=== PATIENT | female | born 1985 | race Caucasian/White ===

== ENCOUNTER 2017-09-20 18:28 | Emergency (ER) | payer OTHER ==
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
[2017-09-20 19:28] VITALS: BP 159/76; PULSE 106; RESP 16; TEMP 99.1
[2017-09-20 19:33] LABS: Basophils % (A) 0 %; Eosinophils # (A) 0.5 k/uL (0-0.7); Eosinophils % (A) 5 %; HCT 39.8 % (34.0-46.0); Lymphocytes # (A) 1.7 k/uL (1.0-4.8); Lymphocytes % (A) 17 %; MCH 31.1 pg (25.0-35.0); MCHC 32.8 g/dL (31.0-37.0); MCV 94.9 fL (80.0-100.0); Mean Platelet Volume 6.8; Monocytes # (A) 0.3 k/uL (0-1.0); Monocytes % (A) 3 %; Neutrophils % (A) 73 %; Platelet Count 294 k/uL (150-450); RDW 13.6 % (11.5-15.5); WBC 9.6 k/uL (3.8-10.6)
[2017-09-20 19:42] LABS: INR 0.9 (<1.2); Partial Thromboplastin Time 22.7 sec (22.0-30.0); Prothrombin Time 9.4 sec (9.0-12.0)
[2017-09-20 19:45] LABS: Creatine Kinase 194 U/L (30-135)
[2017-09-20 19:47] LABS: Albumin 4.3 g/dL (3.5-5.0); Calcium 10.3 mg/dL (8.4-10.2); Potassium 4.3 mmol/L (3.5-5.1); Total Bilirubin 0.2 mg/dL (0.2-1.3); Total Protein 7.2 g/dL (6.3-8.2)
[2017-09-20 19:53] LABS: Lithium 0.9 mmol/L
[2017-09-20 19:53] LABS: Appearance,Urine Clear (Clear); Bilirubin,Urine Negative (Negative); Blood,Urine Negative (Negative); Color,Urine Yellow; Glucose,Urine (UA) Negative (Negative); Ketones,Urine Negative (Negative); Leukocyte Esterase,Urine Negative (Negative); Nitrite,Urine Negative (Negative); PH, Urine 6.5 (5.0-8.0); Protein,Urine Negative (Negative); Specific Gravity,Urine 1.015 (1.001-1.035)
[2017-09-20 19:58] LABS: Creatine Kinase MB 0.9 ng/mL (0.0-2.4); Troponin I <0.012 ng/mL (0.000-0.034)
--- NOTE | 2017-09-20 20:02 | XR ---
EXAMINATION TYPE: XR chest 2V DATE OF EXAM: 09/20/2017 COMPARISON: CT abdomen pelvis dated 04/14/2017 HISTORY: Altered mental status TECHNIQUE: Frontal and lateral views of the chest are obtained. FINDINGS: There is no focal air space opacity, pleural effusion, or pneumothorax seen. The cardiac silhouette size is within normal limits. There are overlying cardiac leads. Retrocardiac lucency rep resents hiatal hernia. The osseous structures are intact. IMPRESSION: No acute cardiopulmonary process. Hiatal hernia.
[2017-09-20 20:04] LABS: Amphetamine Screen,Urine Not Detected (NotDetected); Barbiturate Screen,Urine Not Detected (NotDetected); Benzodiazepines Screen,Urine Detected (NotDetected); Cocaine Screen,Urine Not Detected (NotDetected); Methadone Screen, Urine Not Detected (NotDetected); Opiate Screen,Urine Not Detected (NotDetected); Oxycodone Screen, Urine Not Detected (NotDetected); Phencyclidine Screen,Urine Not Detected (NotDetected); Tricyclic Antidepressant,Urine Not Detected (NotDetected); Urn Cannabinoid Scrn Detected (NotDetected)
== END 2017-09-20 20:23 | disposition left against medical advice (07) ==
LOC: EC 18:28
DX: R41.82 Altered mental status, unspecified (principal); G89.29 Other chronic pain; R51 Headache; F31.9 Bipolar disorder, unspecified; Z87.891 Personal history of nicotine dependence; Z79.3 Long term (current) use of hormonal contraceptives; Z79.899 Other long term (current) drug therapy
CPT/HCPCS: 36415; 71046; 80053; 80178; 80306; 80320; 81003; 82550; 82553; 84484; 85025; 85610; 85730; 93005; 99285

== ENCOUNTER → 2019-06-17 | Outpatient (CLI) | payer OTHER ==
[2019-06-18 02:21] LABS: Albumin 4.2 g/dL (3.80-4.90); Albumin/Globulin Ratio 1.83 (1.60-3.17); Anion Gap 7.4 mmol/L (4.00-12.00); BUN/Creat Ratio 16.67 Ratio (12.00-20.00); Calcium 9.4 mg/dL (8.7-10.3); Carbon Dioxide 28.6 mmol/L (21.6-31.8); Globulin 2.3 g/dL (1.6-3.3); Lithium 0.5 mmol/L (0.5-1.2); Non-African American GFR(CKD) 82.8 (60.0-200.0); Potassium 3.8 mmol/L (3.5-5.5); Total Bilirubin 0.2 mg/dL (0.3-1.2); Total Protein 6.5 g/dL (6.2-8.2)
[2019-06-18 02:24] LABS: T4, Free (Free Thyroxine) 1.3 ng/dL (0.80-1.80)
== END | disposition home or self-care (01) ==
LOC: LABWHC1 14:50
PROVIDERS: ATTEND Psychiatry & Neurology Psychiatry
DX: Z01.818 Encounter for other preprocedural examination (principal); I25.84 Coronary atherosclerosis due to calcified coronary lesion; F31.32 Bipolar disorder, current episode depressed, moderate
CPT/HCPCS: 36415; 80053; 80178; 84439; 84443; 93005

== ENCOUNTER → 2021-07-17 | Outpatient (CLI) | payer OTHER ==
[2021-07-17 13:10] LABS: INR 0.9 (<1.2); Partial Thromboplastin Time 22.3 sec (22.0-30.0); Prothrombin Time 9.7 sec (9.0-12.0)
[2021-07-17 19:14] LABS: African American GFR (CKD) 75.9 (60.0-200.0); Albumin 4.1 g/dL (3.8-4.9); Albumin/Globulin Ratio 1.41 (1.60-3.17); Anion Gap 12.4 mmol/L (10.00-18.00); BUN/Creat Ratio 8.56 Ratio (12.00-20.00); Blood Urea Nitrogen 9.2 mg/dL (9.0-27.0); Calcium 9.5 mg/dL (8.7-10.3); Carbon Dioxide 23.1 mmol/L (20.0-27.5); Globulin 2.9 g/dL (1.6-3.3); Non-African American GFR(CKD) 65.5 (60.0-200.0); Potassium 4.4 mmol/L (3.5-5.5); Total Bilirubin 0.3 mg/dL (0.30-1.20)
[2021-07-17 19:36] LABS: Basophils # (A) 0.06 X 10*3/uL (0.00-0.10); Basophils % (A) 0.6 %; Eosinophils # (A) 0.34 X 10*3/uL (0.04-0.35); Eosinophils % (A) 3.3 %; HCT 42.1 % (37.2-46.3); HGB 13.1 g/dL (12.0-15.0); Immature Grans, Automated 0.4 %; Lymphocytes # (A) 1.92 X 10*3/uL (0.90-5.00); Lymphocytes % (A) 18.8 %; MCH 30.3 pg (27.0-32.0); MCHC 31.1 g/dL (32.0-37.0); MCV 97.2 fL (80.0-97.0); Mean Platelet Volume 10.4 fL (9.5-12.2); Monocytes # (A) 0.47 X 10*3/uL (0.20-1.00); Monocytes % (A) 4.6 %; NRBC Per 100 WBC 0 /100 WBCS (0.0-0.0); Neutrophils # (A) 7.39 X 10*3/uL (1.80-7.70); Neutrophils % (A) 72.3 %; Platelet Count 314 X 10*3/uL (140-440); RBC 4.33 X 10*6/uL (4.10-5.20); RDW 14.4 % (11.5-14.5); WBC 10.22 X 10*3/uL (4.50-10.00)
== END | disposition home or self-care (01) ==
LOC: LABWHC1 11:47
PROVIDERS: ATTEND Otolaryngology Otolaryngology/Facial Plastic Surgery
DX: Z01.812 Encounter for preprocedural laboratory examination (principal)
CPT/HCPCS: 36415; 80053; 85025; 85610; 85730

== ENCOUNTER → 2023-09-16 | Outpatient (CLI) | payer OTHER ==
[2023-09-17 03:45] LABS: ALT 12 U/L (8-44); AST 15 U/L (13-35); Albumin 4.1 g/dL (3.8-4.9); Albumin/Globulin Ratio 1.64 Ratio (1.60-3.17); Alkaline Phosphatase 60 U/L (41-126); BUN/Creat Ratio 10.11 Ratio (12.00-20.00); Blood Urea Nitrogen 9.1 mg/dL (9.0-27.0); Calcium 9.4 mg/dL (8.7-10.3); Carbon Dioxide 21.4 mmol/L (21.6-31.8); Chloride 107 mmol/L (96-109); Chol/HDL Ratio 3.57 Ratio; Globulin 2.5 g/dL (1.6-3.3); Glucose 87 mg/dL (70-110); LDL Cholesterol,Calculated 94.8 mg/dL (0.0-131.0); Potassium 4.8 mmol/L (3.5-5.5); Sodium 139 mmol/L (135-145); Total Bilirubin 0.2 mg/dL (0.3-1.2); Total Protein 6.6 g/dL (6.2-8.2)
== END | disposition home or self-care (01) ==
LOC: LABWHC1 14:58
DX: E66.3 Overweight (principal); Z68.29 Body mass index [BMI] 29.0-29.9, adult
CPT/HCPCS: 36415; 80053; 80061; 83036; 84443

== ENCOUNTER 2024-02-13 13:14 | Emergency (ER) | payer OTHER ==
[2024-02-13 13:22] VITALS: RESP 20; TEMP 98.9
--- NOTE | 2024-02-13 13:34 | ED ---
General Adult HPI - General Chief complaint: Syncope Stated complaint: Seizure Time Seen by Provider: 02/13/24 13:16 Source: patient, EMS, RN notes reviewed Mode of arrival: EMS Limitations: no limitations - History of Present Illness Initial comments: Patient is a 38-year-old female presenting to the emergency department after seizure activity. EMS and boyfriend help provide history as boyfriend witnessed the event. Patient had generalized tonic-clonic activity lasting for a couple minutes and confusion which has significantly improved and near resolved. Patient states she feels much better at this time. Patient does admit to being off of her Valium however thinks it was almost 3 weeks ago. Patient states she ran out. No history of previous seizure. Patient has occasional alcohol use last was a couple days ago, 3 drinks. No headache or weakness. No recent illness. No injury. - Related Data Home Medications Medication Instructions Recorded Confirmed diazePAM [Valium] 10 mg PO TID PRN 04/14/17 06/19/21 [place] Carbonate [[place] 300 mg PO BID 06/19/21 06/19/21 Carbonate ER] Naltrexone HCl [Revia] 50 mg PO DAILY 06/19/21 06/19/21 Propranolol HCl 80 mg PO DAILY 06/19/21 06/19/21 Tri-Femynor 1 tab PO DAILY 06/19/21 06/19/21 Ziprasidone [Geodon] 80 mg PO HS 06/19/21 06/19/21 busPIRone HCL [Buspar] 30 mg PO BID 06/19/21 06/19/21 Allergies Allergy/AdvReac Type Severity Reaction Status Date / Time No Known Allergies Allergy Verified 02/13/24 13:22 Review of Systems ROS Statement: Those systems with pertinent positive or pertinent negative responses have been documented in the HPI. ROS Other: All systems not noted in ROS Statement are negative. Constitutional: Denies: fever Eyes: Denies: eye pain ENT: Denies: ear pain Respiratory: Denies: cough Cardiovascular: Denies: chest pain Endocrine: Denies: fatigue Gastrointestinal: Denies: abdominal pain Neurological: Reports: as per HPI Past Medical History Past Medical History: GERD/Reflux History of Any Multi-Drug Resistant Organisms: None Reported Past Surgical History: Section, Hernia Repair, Orthopedic Surgery Additional Past Surgical History / Comment(s): thang fundalplacation, right shoulder reconstruction. Past Anesthesia/Blood Transfusion Reactions: No Reported Reaction Past Psychological History: Anxiety, Bipolar, Depression Smoking Status: Vaper Past Alcohol Use History: Heavy Past Drug Use History: None Reported - Past Family History Mother Family Medical History: Hypertension Additional Family Medical History / Comment(s): breast CA, /Environmental CA. Father Family Medical History: Hypertension Additional Family Medical History / Comment(s): grandma on dad's side had Breast CA. General Exam Limitations: no limitations General appearance: alert, in no apparent distress Head exam: Present: atraumatic, normocephalic Eye exam: Present: normal appearance, PERRL, EOMI. Absent: nystagmus ENT exam: Present: normal oropharynx Neck exam: Present: normal inspection. Absent: tenderness Respiratory exam: Present: normal lung sounds bilaterally Cardiovascular Exam: Present: normal rhythm, tachycardia, normal heart sounds GI/Abdominal exam: Present: soft. Absent: tenderness Extremities exam: Present: normal inspection. Absent: pedal edema, calf tenderness Neurological exam: Present: alert, oriented X3, CN II-XII intact. Absent: motor sensory deficit Expanded Neurological exam: Present: protecting the airway Patient oriented to: Present: person, place, time (Slow to respond and unsure however does answer orientation on time correctly) Speech: Present: fluid speech Cranial nerves: EOM's Intact: Normal Sensory exam: Upper Extremity Light Touch: Normal, Lower Extremity Light Touch: Normal Motor strength exam: RUE: 5, LUE: 5, RLE: 5, LLE: 5 Eye Response: (4) open spontaneously Motor Response: (6) obeys commands Verbal Response: (5) oriented Psychiatric exam: Present: normal affect, normal mood Skin exam: Present: normal color Course Vital Signs 02/13/24 02/13/24 13:16 14:22 Temperature 98.9 F Pulse Rate 140 H 112 H Respiratory 20 20 Rate Blood Pressure 125/85 115/83 O2 Sat by Pulse 99 98 Oximetry EKG Findings - EKG Results: EKG: interpreted by BRIAND, sinus rhythm, normal axis, normal QRS, normal ST/T EKG shows: tachycardia Medical Decision Making - Medical Decision Making Was pt. sent in by a medical professional or institution (, PA, FINANCIAL COST ANALYST, urgent care, hospital, or usp...) When possible be specific @ -No Did you speak to anyone other than the patient for history (EMS, parent, family, police, friend...)? What history was obtained from this source @ -Patient's boyfriend is present and helps provide history as patient was unresponsive during the episode Did you review nursing and triage notes (agree or disagree)? Why? @ -I reviewed and agree with nursing and triage notes Were old charts reviewed (outside hosp., previous admission, EMS record, old EKG, old radiological studies, urgent care reports/EKG's, usp records)? Report findings @ -No old charts were reviewed Differential Diagnosis (chest pain, altered mental status, abdominal pain women, abdominal pain men, vaginal bleeding, weakness, fever, dyspnea, syncope, headache, dizziness, GI bleed, back pain, seizure, CVA, palpatations, mental health, musculoskeletal)? @ -Differential Seizure: Recurrent seizure disorder, febrile seizure, alcohol withdrawal, stimulants, meningitis, encephalitis, intercranial hemorrhage, intracranial tumor, stroke, eclampsia, thyrotoxicosis, hypocalcemia, hyponatremia, hypernatremia, hypomagnesemia, psychogenic, this is not meant to be an all-inclusive list. EKG interpreted by me (3pts min.). @ -As above X-rays interpreted by me (1pt min.). @ -None done CT interpreted by me (1pt min.). @ -CT scan of the brain does not reveal acute abnormality U/S interpreted by me (1pt. min.). @ -None done What testing was considered but not performed or refused? (CT, X-rays, U/S, labs)? Why? @ -None What meds were considered but not given or refused? Why? @ -None Did you discuss the management of the patient with other professionals (professionals i.e. , PA, FINANCIAL COST ANALYST, lab, RT, psych nurse, social worker assistant, package line operator, teacher, customs and immigration officer, nurse case manager)? Give summary @ -No Was smoking cessation discussed for >3mins.? @ -No Was critical care preformed (if so, how long)? @ -No Were there social determinants of health that impacted care today? How? (Homelessness, low income, unemployed, alcoholism, drug addiction, transportation, low edu. Level, literacy, decrease access to med. care, senior living, rehab)? @ -No Was there de-escalation of care discussed even if they declined (Discuss DNR or withdrawal of care, Hospice)? DNR status @ -No What co-morbidities impacted this encounter? (DM, HTN, Smoking, COPD, CAD, Cancer, CVA, ARF, Chemo, Hep., AIDS, mental health diagnosis, sleep apnea, morbid obesity)? @ -History of Valium use, last approximately 3 weeks ago Was patient admitted / discharged? Hospital course, mention meds given and route, prescriptions, significant lab abnormalities, going to OR and other pertinent info. @ -Patient presents with seizure, possibly related to discontinuing Valium. This has been 3 weeks and patient should be towards the end of any withdrawal. Patient is requesting discharge home. Patient is recommended close follow-up with her doctor and will be provided a Xanax to take over the next couple of days if she needs. Patient is advised [facility] rule for no driving for 6 months Undiagnosed new problem with uncertain prognosis? @ -No Drug Therapy requiring intensive monitoring for toxicity (Heparin, Nitro, Insulin, Cardizem)? @ -No Were any procedures done? @ -No Diagnosis/symptom? @ -Seizure Acute, or Chronic, or Acute on Chronic? @ -Acute Uncomplicated (without systemic symptoms) or Complicated (systemic symptoms)? @ -Complicated with potential of withdrawal seizure Side effects of treatment? @ -No Exacerbation, Progression, or Severe Exacerbation? @ -No Poses a threat to life or bodily function? How? (Chest pain, [place], [place], pneumonia, PE, COPD, DKA, ARF, appy, cholecystitis, CVA, Diverticulitis, Homicidal, Suicidal, threat to staff... and all critical care pts) @ -No - Lab Data Result diagrams: 02/13/24 16:15 02/13/24 16:04 Lab Results 02/13/24 02/13/24 02/13/24 Range/Units 14:09 16:04 16:15 WBC 11.6 H (3.8-10.6) k/uL RBC 4.03 (3.80-5.40) m/uL Hgb 12.6 (11.4-16.0) gm/dL Hct 38.0 (34.0-46.0) % MCV 94.3 (80.0-100.0) fL MCH 31.4 (25.0-35.0) pg MCHC 33.3 (31.0-37.0) g/dL RDW 14.7 (11.5-15.5) % Plt Count 135 L (150-450) k/uL MPV 8.8 Neutrophils % 79 % Lymphocytes % 14 % Monocytes % 4 % Eosinophils % 1 % Basophils % 0 % Neutrophils # 9.2 H (1.3-7.7) k/uL Lymphocytes # 1.7 (1.0-4.8) k/uL Monocytes # 0.5 (0-1.0) k/uL Eosinophils # 0.2 (0-0.7) k/uL Basophils # 0.0 (0-0.2) k/uL Sodium 136 L (137-145) mmol/L Potassium 4.4 (3.5-5.1) mmol/L Chloride 112 H (98-107) mmol/L Carbon Dioxide 19 L (22-30) mmol/L Anion Gap 5 mmol/L BUN 11 (7-17) mg/dL Creatinine 0.95 (0.52-1.04) mg/dL Est GFR (CKD-EPI)AfAm 88 (>60 ml/min/1.73 sqM) Est GFR (CKD-EPI)NonAf 76 (>60 ml/min/1.73 sqM) Glucose 97 (74-99) mg/dL Calcium 9.1 (8.4-10.2) mg/dL Magnesium 1.9 (1.6-2.3) mg/dL Total Bilirubin 0.7 (0.2-1.3) mg/dL AST 30 (14-36) U/L ALT 23 (4-34) U/L Alkaline Phosphatase 72 (38-126) U/L Total Protein 6.5 (6.3-8.2) g/dL Albumin 3.9 (3.5-5.0) g/dL TSH 0.388 L (0.465-4.680) mIU/L Free T4 0.98 (0.78-2.19) ng/dL HCG, Qual Not Detected Urine Color Light Yellow Urine Appearance Cloudy H (Clear) Urine pH 6.0 (5.0-8.0) Ur Specific [place] 1.013 (1.001-1.035) Urine Protein 1+ H (Negative) Urine Glucose (UA) Negative (Negative) Urine Ketones 1+ H (Negative) Urine Blood Negative (Negative) Urine Nitrite Negative (Negative) Urine Bilirubin Negative (Negative) Urine Urobilinogen <2.0 (<2.0) mg/dL Ur Leukocyte Esterase Small H (Negative) Urine RBC 3 (0-5) /hpf Urine WBC 6 H (0-5) /hpf Ur Squamous Epith Cells 36 H (0-4) /hpf Amorphous Sediment Rare H (None) /hpf Hyaline Casts 4 H (0-2) /lpf Urine Mucus Rare H (None) /hpf Urine Opiates Screen Not Detected (NotDetected) Ur Oxycodone Screen Not Detected (NotDetected) Urine Methadone Screen Not Detected (NotDetected) Ur Barbiturates Screen Not Detected (NotDetected) U Tricyclic Antidepress Detected H (NotDetected) Ur Phencyclidine Scrn Not Detected (NotDetected) Ur Amphetamines Screen Not Detected (NotDetected) U Methamphetamines Scrn Not Detected (NotDetected) U Benzodiazepines Scrn Detected H (NotDetected) [place] 0.7 mmol/L Urine Cocaine Screen Not Detected (NotDetected) U Marijuana (THC) Screen Detected H (NotDetected) Disposition Clinical Impression: Seizure Disposition: HOME SELF-CARE Condition: Stable Instructions (If sedation given, give patient instructions): New-Onset Seizure in Adults (ED) Additional Instructions: Please do follow-up with your primary care physician in the next couple of days for recheck. Extra Xanax provided for you to take home if you need over the next couple of days. Return for recurrent seizures, loss of consciousness, vomiting, fevers, worsening or change in symptoms concerns Is patient prescribed a controlled substance at d/c from ED?: No Referrals: Antonio Costello MD [Primary Care Provider] - 1-2 days Time of Disposition: 17:40
--- NOTE | 2024-02-13 14:25 | CT ---
EXAMINATION TYPE: CT brain wo con DATE OF EXAM: 02/13/2024 COMPARISON: None HISTORY: Seizure CT DLP: 1027.4 mGycm. Automated Exposure Control for Dose Reduction was Utilized. Multiple axial lauren ges were obtained from the skull base to vertex without use of IV contrast. Findings: The ventricles, basal cisterns and sulci over the convexities are within normal limits and there is n o mass effect or shift of midline structures. No abnormal density is seen throughout the brain parenchyma and there is no acute intra or extra-axia l hemorrhage. The posterior fossa including the brainstem, fourth ventricle and cerebellar pontine angles appear no rmal. Intraorbital contents appear normal and symmetric. Visualized paranasal sinuses and mastoid air cells are well aerated. The calvarium is intact. IMPRESSION: No significant abnormality seen. contrast. [facility], , 02/13/2024 2:22 PM
[2024-02-13 14:32] LABS: Amorphous Sediment,Urine Rare /hpf; Appearance,Urine Cloudy (Clear); Bilirubin,Urine Negative (Negative); Blood,Urine Negative (Negative); Color,Urine Light Yellow; Glucose,Urine (UA) Negative (Negative); Hyaline Casts,Urine 4 /lpf (0-2); Ketones,Urine 1+ (Negative); Leukocyte Esterase,Urine Small (Negative); Mucus,Urine Rare /hpf; Nitrite,Urine Negative (Negative); Protein,Urine 1+ (Negative); RBC,Urine 3 /hpf (0-5); Specific Gravity,Urine 1.013 (1.001-1.035); Squamous Epithelial Cell,Urine 36 /hpf (0-4); Urobilinogen,Urine <2.0 mg/dL (<2.0); WBC,Urine 6 /hpf (0-5)
[2024-02-13 14:49] LABS: Amphetamine Screen,Urine Not Detected (NotDetected); Barbiturate Screen,Urine Not Detected (NotDetected); Benzodiazepines Screen,Urine Detected (NotDetected); Cocaine Screen,Urine Not Detected (NotDetected); Methadone Screen, Urine Not Detected (NotDetected); Opiate Screen,Urine Not Detected (NotDetected); Oxycodone Screen, Urine Not Detected (NotDetected); Phencyclidine Screen,Urine Not Detected (NotDetected); Tricyclic Antidepressant,Urine Detected (NotDetected); Urn Cannabinoid Scrn Detected (NotDetected)
[2024-02-13 16:27] LABS: HCG,Qualitative Serum Not Detected
[2024-02-13 16:35] LABS: ALT 23 U/L (4-34); AST 30 U/L (14-36); African American GFR (CKD) 88 (>60 ml/min/1.73 sqM); Albumin 3.9 g/dL (3.5-5.0); Alkaline Phosphatase 72 U/L (38-126); Anion Gap 5 mmol/L; Blood Urea Nitrogen 11 mg/dL (7-17); Calcium 9.1 mg/dL (8.4-10.2); Carbon Dioxide 19 mmol/L (22-30); Chloride 112 mmol/L (98-107); Glucose 97 mg/dL (74-99); Lithium 0.7 mmol/L; Magnesium 1.9 mg/dL (1.6-2.3); Non-African American GFR(CKD) 76 (>60 ml/min/1.73 sqM); Potassium 4.4 mmol/L (3.5-5.1); Sodium 136 mmol/L (137-145); Total Bilirubin 0.7 mg/dL (0.2-1.3); Total Protein 6.5 g/dL (6.3-8.2)
[2024-02-13 16:52] LABS: T4, Free (Free Thyroxine) 0.98 ng/dL (0.78-2.19)
[2024-02-13 17:17] LABS: Basophils % (A) 0 %; Eosinophils # (A) 0.2 k/uL (0-0.7); Eosinophils % (A) 1 %; HGB 12.6 gm/dL (11.4-16.0); Lymphocytes # (A) 1.7 k/uL (1.0-4.8); Lymphocytes % (A) 14 %; MCH 31.4 pg (25.0-35.0); MCHC 33.3 g/dL (31.0-37.0); MCV 94.3 fL (80.0-100.0); Mean Platelet Volume 8.8; Monocytes # (A) 0.5 k/uL (0-1.0); Monocytes % (A) 4 %; Neutrophils # (A) 9.2 k/uL (1.3-7.7); Neutrophils % (A) 79 %; Platelet Count 135 k/uL (150-450); RBC 4.03 m/uL (3.80-5.40); RDW 14.7 % (11.5-15.5); WBC 11.6 k/uL (3.8-10.6)
[2024-02-13] MEDS: ALPRAZolam 0.5 MG TAB PO STA (17:49)
[2024-02-13 17:53] VITALS: BP 123/85; PULSE 86
== END 2024-02-13 17:53 | disposition home or self-care (01) ==
LOC: EC 13:14
CPT/HCPCS: 36415; 70450; 80053; 80178; 80306; 81001; 83735; 84439; 84443; 84481; 84703; 85025; 93005; 96374; 99285

== ENCOUNTER 2024-05-23 09:27 | Inpatient (IN) | payer OTHER ==
[2024-05-23] MEDS ORDERED: LORazepam 2 MG/ML INJ IV PRN ×2 (09:40)
--- NOTE | 2024-05-23 09:46 | ED ---
Alcohol HPI - General Chief Complaint: Alcohol Stated Complaint: ETOH Time Seen by Provider: 05/23/24 09:34 Source: patient, RN notes reviewed Mode of arrival: ambulatory Limitations: no limitations - History of Present Illness Initial Comments: This is a 39-year-old female who presents to the emergency department for alcohol withdrawals. States that her last drink was 24 hours ago. She typically has a fifth of liquor each day. States that she is starting to feel shaky, nauseous, and dizzy. Denies any chest pain or shortness of breath. She does also report a history of withdrawal seizures. She went through withdrawals in March but ended up managing it outpatient with a prescription for Xanax to wean herself off. MD Complaint: alcohol withdrawal - Related Data Home Medications Medication Instructions Recorded Confirmed busPIRone HCL [Buspar] 30 mg PO BID 06/19/21 05/23/24 ALPRAZolam [Xanax] 1 mg PO TID PRN 02/13/24 05/23/24 Channing Carbonate ER [Lithobid] 450 mg PO HS 02/13/24 05/23/24 Oxybutynin ER [Ditropan XL] 15 mg PO BID 02/13/24 05/23/24 Prazosin [Minipress] 1 mg PO HS 02/13/24 05/23/24 QUEtiapine [SEROquel] 400 mg PO HS 02/13/24 05/23/24 Ziprasidone [Geodon] 60 mg PO BID 02/13/24 05/23/24 buPROPion XL [Wellbutrin XL] 300 mg PO DAILY 02/13/24 05/23/24 Propranolol HCl [Propranolol HCl 80 mg PO DAILY 05/23/24 05/23/24 ER] Allergies Allergy/AdvReac Type Severity Reaction Status Date / Time No Known Allergies Allergy Verified 05/23/24 13:16 Review of Systems ROS Statement: Those systems with pertinent positive or pertinent negative responses have been documented in the HPI. ROS Other: All systems not noted in ROS Statement are negative. Past Medical History Past Medical History: GERD/Reflux History of Any Multi-Drug Resistant Organisms: None Reported Past Surgical History: Section, Hernia Repair, Orthopedic Surgery Additional Past Surgical History / Comment(s): thang fundalplacation, right shoulder reconstruction. kinsey [place] Past Anesthesia/Blood Transfusion Reactions: No Reported Reaction Past Psychological History: Anxiety, Bipolar, Depression Smoking Status: Current every day smoker, Vaper Past Alcohol Use History: Daily, Heavy Past Drug Use History: Marijuana - Past Family History Mother Family Medical History: Hypertension Additional Family Medical History / Comment(s): breast CA, /Environmental CA. Father Family Medical History: Hypertension Additional Family Medical History / Comment(s): grandma on dad's side had Breast CA. General Exam Limitations: no limitations General appearance: alert, in no apparent distress Head exam: Present: atraumatic, normocephalic, normal inspection Eye exam: Present: normal appearance, PERRL, EOMI. Absent: scleral icterus, conjunctival injection, periorbital swelling Respiratory exam: Present: normal lung sounds bilaterally. Absent: respiratory distress, wheezes, rales, rhonchi, stridor Cardiovascular Exam: Present: regular rate, normal rhythm, normal heart sounds. Absent: systolic murmur, diastolic murmur, rubs, gallop, clicks Neurological exam: Present: alert, oriented X3, CN II-XII intact Psychiatric exam: Present: normal affect, normal mood Skin exam: Present: warm, dry, intact, normal color. Absent: rash Course Vital Signs 05/23/24 05/23/24 05/23/24 09:28 10:39 12:46 Temperature 98.2 F Pulse Rate 89 78 72 Respiratory 18 20 18 Rate Blood Pressure 126/82 106/95 122/79 O2 Sat by Pulse 99 98 99 Oximetry Medical Decision Making - Medical Decision Making This is a 39-year-old female who presents to the emergency department for alcohol withdrawals. Was pt. sent in by a medical professional or institution? @ -No Did you speak to anyone other than the patient for history? @ -No Did you review nursing and triage notes? @ -Yes, and I agree, it is accurate with regards to the patient's symptoms. Were old charts reviewed? @ -No Differential Diagnosis? @ -Alcohol withdrawals, hypoglycemia, panic attack, thyrotoxicosis, this is not meant to be an all-inclusive list. EKG interpreted by me (3pts min.)? @ -EKG interpreted by me demonstrating the following: Sinus rhythm. Ventricular rate 79 bpm, CO interval 159 ms, QRS duration 71 ms, QTc 464 ms. X-rays interpreted by me (1pt min.)? @ -Not obtained CT interpreted by me (1pt min.)? @ -Not obtained U/S interpreted by me (1pt. min.)? @ -Not obtained What testing was considered but not performed? (CT, X-rays, U/S, labs)? Why? @ -None What meds were considered but not given? Why? @ -None Did you discuss the management of the patient with other professionals? @ -Yes, Dr. Costello, who accepts the patient for admission Did you reconcile home meds? @ -Yes Was smoking cessation discussed for >3mins.? @ -No Was critical care preformed (if so, how long)? @ -No Were there social determinants of health that impacted care today? How? (Homelessness, low income, unemployed, alcoholism, drug addiction, transportation, low edu. Level, literacy, decrease access to med. care, retirement, rehab)? @ -Alcoholism, leading to the withdrawals, which is the reason for her visit today. Was there de-escalation of care discussed even if they declined? (Discuss DNR or withdrawal of care, Hospice)? @ -No What co-morbidities impacted this encounter? (DM, HTN, Smoking, COPD, CAD, Cancer, CVA, Hep., AIDS, mental health diagnosis, sleep apnea, morbid obesity)? @ -Alcoholism Was patient admitted / discharged? @ -Admitted. Lab work relatively unremarkable. Urinalysis negative for signs of infection. Patient was notably shaky and diaphoretic on exam. Initial CIWA was 12. Seizure precautions were initiated due to her history. She was admitted to medicine for further management of alcohol withdrawals. CIWA protocol initiated. Case discussed with ED attending Dr. Marsh. Undiagnosed new problem with uncertain prognosis? @ -None Drug Therapy requiring intensive monitoring for toxicity (Heparin, Nitro, Insulin, Cardizem)? @ -None Were any procedures done? @ -None Diagnosis/symptom? @ -Alcohol withdrawals Acute, or Chronic, or Acute on Chronic? @ -Acute Uncomplicated (without systemic symptoms) or Complicated (systemic symptoms)? @ -Complicated Side effects of treatment? @ -None Exacerbation, Progression, or Severe Exacerbation] @ -Not applicable Poses a threat to life or bodily function? @ -Yes, can lead to DTs, which can be fatal - Lab Data Result diagrams: 05/23/24 10:18 05/23/24 11:08 Lab Results 05/23/24 05/23/24 05/23/24 Range/Units 10:18 10:37 11:08 WBC 8.0 (3.8-10.6) k/uL RBC 4.20 (3.80-5.40) m/uL Hgb 14.0 (11.4-16.0) gm/dL Hct 41.9 (34.0-46.0) % MCV 99.7 (80.0-100.0) fL MCH 33.3 (25.0-35.0) pg MCHC 33.3 (31.0-37.0) g/dL RDW 14.7 (11.5-15.5) % Plt Count 236 (150-450) k/uL MPV 6.7 Neutrophils % 81 % Lymphocytes % 10 % Monocytes % 5 % Eosinophils % 1 % Basophils % 0 % Neutrophils # 6.5 (1.3-7.7) k/uL Lymphocytes # 0.8 L (1.0-4.8) k/uL Monocytes # 0.4 (0-1.0) k/uL Eosinophils # 0.1 (0-0.7) k/uL Basophils # 0.0 (0-0.2) k/uL Macrocytosis Slight PT 10.3 (10.0-12.5) sec INR 0.9 (<1.2) Sodium 134 L (137-145) mmol/L Potassium 4.4 (3.5-5.1) mmol/L Chloride 95 L (98-107) mmol/L Carbon Dioxide 26 (22-30) mmol/L Anion Gap 13 mmol/L BUN 13 (7-17) mg/dL Creatinine 0.90 (0.52-1.04) mg/dL Est GFR (CKD-EPI)AfAm >90 (>60 ml/min/1.73 sqM) Est GFR (CKD-EPI)NonAf 81 (>60 ml/min/1.73 sqM) Glucose 80 (74-99) mg/dL Calcium 9.8 (8.4-10.2) mg/dL Phosphorus 2.0 L (2.5-4.5) mg/dL Magnesium 2.0 (1.6-2.3) mg/dL Total Bilirubin 1.3 (0.2-1.3) mg/dL AST 127 H (14-36) U/L ALT 76 H (4-34) U/L Alkaline Phosphatase 71 (38-126) U/L Troponin I (0.000-0.034) ng/mL Total Protein 7.6 (6.3-8.2) g/dL Albumin 4.7 (3.5-5.0) g/dL Amylase 47 (30-110) U/L Lipase 43 (23-300) U/L Serum Alcohol <10 mg/dL 05/23/24 Range/Units 11:08 WBC (3.8-10.6) k/uL RBC (3.80-5.40) m/uL Hgb (11.4-16.0) gm/dL Hct (34.0-46.0) % MCV (80.0-100.0) fL MCH (25.0-35.0) pg MCHC (31.0-37.0) g/dL RDW (11.5-15.5) % Plt Count (150-450) k/uL MPV Neutrophils % % Lymphocytes % % Monocytes % % Eosinophils % % Basophils % % Neutrophils # (1.3-7.7) k/uL Lymphocytes # (1.0-4.8) k/uL Monocytes # (0-1.0) k/uL Eosinophils # (0-0.7) k/uL Basophils # (0-0.2) k/uL Macrocytosis PT (10.0-12.5) sec INR (<1.2) Sodium (137-145) mmol/L Potassium (3.5-5.1) mmol/L Chloride (98-107) mmol/L Carbon Dioxide (22-30) mmol/L Anion Gap mmol/L BUN (7-17) mg/dL Creatinine (0.52-1.04) mg/dL Est GFR (CKD-EPI)AfAm (>60 ml/min/1.73 sqM) Est GFR (CKD-EPI)NonAf (>60 ml/min/1.73 sqM) Glucose (74-99) mg/dL Calcium (8.4-10.2) mg/dL Phosphorus (2.5-4.5) mg/dL Magnesium (1.6-2.3) mg/dL Total Bilirubin (0.2-1.3) mg/dL AST (14-36) U/L ALT (4-34) U/L Alkaline Phosphatase (38-126) U/L Troponin I <0.012 (0.000-0.034) ng/mL Total Protein (6.3-8.2) g/dL Albumin (3.5-5.0) g/dL Amylase (30-110) U/L Lipase (23-300) U/L Serum Alcohol mg/dL Disposition Clinical Impression: Alcohol withdrawal Disposition: ADMITTED IP TO THIS HOSP
[2024-05-23] MEDS: THIAMINE 100 MG/ML 2 ML VIAL IM STA (10:24)
[2024-05-23] MEDS: SODIUM CHLORIDE 0.9% 1,000 ML IV STA (10:26)
[2024-05-23] MEDS: LORazepam 2 MG/ML INJ IV STA (10:26)
[2024-05-23 10:30] LABS: Basophils % (A) 0 %; Eosinophils # (A) 0.1 k/uL (0-0.7); Eosinophils % (A) 1 %; HCT 41.9 % (34.0-46.0); Lymphocytes # (A) 0.8 k/uL (1.0-4.8); Lymphocytes % (A) 10 %; MCH 33.3 pg (25.0-35.0); MCHC 33.3 g/dL (31.0-37.0); MCV 99.7 fL (80.0-100.0); Macrocytosis Slight; Mean Platelet Volume 6.7; Monocytes # (A) 0.4 k/uL (0-1.0); Monocytes % (A) 5 %; Neutrophils # (A) 6.5 k/uL (1.3-7.7); Neutrophils % (A) 81 %; Platelet Count 236 k/uL (150-450); RDW 14.7 % (11.5-15.5)
[2024-05-23 11:14] LABS: INR 0.9 (<1.2); Prothrombin Time 10.3 sec (10.0-12.5)
[2024-05-23 11:40] LABS: ALT 76 U/L (4-34); AST 127 U/L (14-36); African American GFR (CKD) >90 (>60 ml/min/1.73 sqM); Albumin 4.7 g/dL (3.5-5.0); Alcohol <10 mg/dL; Alkaline Phosphatase 71 U/L (38-126); Amylase 47 U/L (30-110); Anion Gap 13 mmol/L; Blood Urea Nitrogen 13 mg/dL (7-17); Calcium 9.8 mg/dL (8.4-10.2); Carbon Dioxide 26 mmol/L (22-30); Chloride 95 mmol/L (98-107); Glucose 80 mg/dL (74-99); Lipase 43 U/L (23-300); Non-African American GFR(CKD) 81 (>60 ml/min/1.73 sqM); Potassium 4.4 mmol/L (3.5-5.1); Sodium 134 mmol/L (137-145); Total Bilirubin 1.3 mg/dL (0.2-1.3); Total Protein 7.6 g/dL (6.3-8.2)
[2024-05-23] MEDS ORDERED: IBUPROFEN 400 MG TAB PO PRN (11:53)
[2024-05-23] MEDS ORDERED: MORPHINE SULFATE 4 MG/ML SYRINGE IV PRN (11:53)
[2024-05-23] MEDS ORDERED: KETOROLAC 15 MG/ML 1 ML VIAL IVP PRN (11:53)
[2024-05-23] MEDS ORDERED: NALOXONE 0.4 MG/ML 1 ML VIAL IV PRN (11:53)
[2024-05-23] MEDS: ONDANSETRON 4 MG/2 ML VIAL IVP STA (12:44)
[2024-05-23] MEDS: LORazepam 2 MG/ML INJ IV PRN ×2 (12:44→16:58)
[2024-05-23 13:35] LABS: Amorphous Sediment,Urine Occasional /hpf; Appearance,Urine Cloudy (Clear); Bilirubin,Urine Negative (Negative); Blood,Urine Trace (Negative); Color,Urine Light Yellow; Glucose,Urine (UA) Negative (Negative); Ketones,Urine 2+ (Negative); Leukocyte Esterase,Urine Negative (Negative); Mucus,Urine Rare /hpf; Nitrite,Urine Negative (Negative); Protein,Urine Trace (Negative); RBC,Urine 4 /hpf (0-5); Specific Gravity,Urine 1.011 (1.001-1.035); Squamous Epithelial Cell,Urine 12 /hpf (0-4); Urobilinogen,Urine <2.0 mg/dL (<2.0); WBC,Urine 2 /hpf (0-5)
[2024-05-23 13:45] LABS: Amphetamine Screen,Urine Not Detected (NotDetected); Cocaine Screen,Urine Not Detected (NotDetected); Opiate Screen,Urine Not Detected (NotDetected); Phencyclidine Screen,Urine Not Detected (NotDetected); Urn Cannabinoid Scrn Detected (NotDetected)
[2024-05-23 13:46] LABS: Barbiturate Screen,Urine Not Detected (NotDetected); Benzodiazepines Screen,Urine Detected (NotDetected); Methadone Screen, Urine Not Detected (NotDetected); Oxycodone Screen, Urine Not Detected (NotDetected); Tricyclic Antidepressant,Urine Not Detected (NotDetected)
[2024-05-23] MEDS: ONDANSETRON 4 MG/2 ML VIAL IVP PRN (19:46)
[2024-05-23] MEDS: PRAZOSIN 1 MG CAP PO SCH (20:56)
[2024-05-23] MEDS: LITHIUM CARBONATE ER 450 MG TABLET.ER PO SCH (20:57)
[2024-05-23] MEDS: QUEtiapine 400 MG TAB PO SCH (20:57)
[2024-05-23] MEDS: OXYBUTYNIN 15 MG TAB.ER.24 PO SCH (20:57)
[2024-05-23] MEDS: ZIPRASIDONE 60 MG CAP PO SCH (20:57)
[2024-05-23] MEDS: busPIRone HCl 10 MG TAB PO SCH (20:57)
[2024-05-23] MEDS: ALPRAZolam 1 MG TAB PO PRN (22:16)
[2024-05-24] MEDS: PROPRANOLOL LA 80 MG CAP.SA.24H PO SCH (08:18)
[2024-05-24] MEDS: FOLIC ACID 1 MG TAB PO SCH (08:19)
[2024-05-24] MEDS: PANTOPRAZOLE 40 MG TABLET PO SCH (08:19)
[2024-05-24] MEDS: MULTIVITAMINS, THERA 1 EACH TAB PO SCH (08:19)
[2024-05-24] MEDS: THIAMINE 100 MG TAB PO SCH (08:19)
[2024-05-24] MEDS ORDERED: PANTOPRAZOLE 40 MG/10 ML VIAL IV SCH (09:00)
[2024-05-24] MEDS: buPROPion XL 300 MG TAB.ER.24H PO SCH (09:25)
[2024-05-24] MEDS: DEXTROSE 5%-0.45% NACL 1,000 ML IV SCH (16:36)
[2024-05-24] MEDS: ACETAMINOPHEN TAB 325 MG TAB PO PRN (16:44)
--- NOTE | 2024-05-25 23:17 | HP ---
HISTORY AND PHYSICAL CHIEF COMPLAINT: Acute alcohol intoxication and DTs. HISTORY OF PRESENT ILLNESS: This is another admission for this 39-year-old chronic alcoholic. She came to the emergency room acutely intoxicated and in DTs. REVIEW OF SYSTEMS: She feels nauseated and shaky. She has not had diplopia. She has had no hematemesis, melena, hematochezia, jaundice, etc. Past medical history, family history, and personal and social histories reveal that she takes Xanax, oxybutynin, propranolol, Seroquel, Geodon, Wellbutrin, and Trintellix. Remainder of the history is unremarkable. PHYSICAL EXAMINATION: VITAL SIGNS: Normal. GENERAL: She appears to be pale and acutely ill. She is awake and alert. HEAD, EARS, EYES, NOSE, MOUTH, AND THROAT: Normal. She has no strabismus. CHEST: Clear. CARDIAC: Demonstrates sinus tachycardia. ABDOMEN: Soft, nontender. EXTREMITIES: Normal. IMPRESSION: 1. Acute alcohol intoxication. 2. Delirium tremens. 3. Chronic alcoholism. 4. Bipolar depression. PLAN: 1. Bed rest. 2. IV fluids. 3. CIWA protocol. MMODL / IJN: [id number] /
--- NOTE | 2024-05-26 03:47 | PN ---
PROGRESS NOTE DATE OF SERVICE: 05/24/2024 CHIEF COMPLAINT: DTs. HISTORY OF PRESENT ILLNESS: This lady is quite shaky and in DTs. She has had no seizure activity. PHYSICAL EXAM: GENERAL: She is pale and slightly tremulous. CHEST: Clear. It shows sinus tachycardia. IMPRESSION: 1. DTs. 2. Chronic alcoholism. 3. Acute alcohol toxicity. 4. Dehydration. PLAN: 1. Continue with CIWA protocol. 2. Start IV fluids. NIKOLAY / JOHNN: [id number] /
--- NOTE | 2024-05-26 04:20 | PN ---
PROGRESS NOTE DATE OF SERVICE: 05/25/2024 CHIEF COMPLAINT: DTs. HISTORY OF PRESENT ILLNESS: This lady is still nauseated and somewhat shaky. Her liver functions are elevated. PHYSICAL EXAM: GENERAL: She is pale. CHEST: Clear. CARDIAC: Reveals sinus tachycardia. IMPRESSION: 1. DTs. 2. Acute alcohol intoxication. 3. Chronic alcoholism. 4. Alcoholic hepatitis. PLAN: Continue with [facility] protocol. MMODL / IJN: [id number] /
[2024-05-26] MEDS: LORazepam 1 MG TAB PO PRN (10:55)
[2024-05-26] MEDS: ACAMPROSATE CALCIUM 333 MG TABLET.DR PO SCH (13:45)
[2024-05-26] MEDS: NALTREXONE HCL 50 MG TAB PO SCH (14:07)
[2024-05-26] MEDS ORDERED: NALTREXONE MICROSPHERES 380 MG VIAL (NO COST - VIVITROL) IM ONE (16:00)
[2024-05-27 01:37] VITALS: TEMP 98.6
--- NOTE | 2024-05-27 02:44 | PN ---
PROGRESS NOTE DATE OF SERVICE: 05/26/2024 CHIEF COMPLAINT: DTs. HISTORY OF PRESENT ILLNESS: This lady is still slightly unsteady, but improved. PHYSICAL EXAMINATION: GENERAL: She remains pale. CHEST: Clear. CARDIAC: Normal. IMPRESSION: 1. Acute alcohol intoxication. 2. Chronic alcoholism. PLAN: Continue on current program for another day before she can be discharged. We will also start her on Campral and Vivitrol. MMODL / IJN: [id number] /
[2024-05-27 09:14] VITALS: BP 109/70; PULSE 91; RESP 17
== END 2024-05-27 14:50 | disposition home or self-care (01) | DRG 775 ==
LOC: EC 09:27 → 6NMEDSUR 11:54 → OBSVTOIN 11:55 → 5NMEDONC 15:35
PROVIDERS: ADMIT Family Medicine; ATTEND Family Medicine
DX: F10.231 Alcohol dependence with withdrawal delirium (principal); F31.30 Bipolar disorder, current episode depressed, mild or moderate severity, unspecified; F10.229 Alcohol dependence with intoxication, unspecified; K70.10 Alcoholic hepatitis without ascites; E86.0 Dehydration; F17.290 Nicotine dependence, other tobacco product, uncomplicated; Y90.0 Blood alcohol level of less than 20 mg/100 ml; Z79.899 Other long term (current) drug therapy
CPT/HCPCS: 36415; 80053; 80306; 80320; 81001; 81025; 82150; 83690; 83735; 84100; 84484; 85025; 85610; 93005; 96361; 96372; 96374; 96375; 96376; 99285